=== PATIENT | female | born 1970 | race Caucasian/White ===

== ENCOUNTER 2021-09-16 21:19 | Emergency (ER) | payer OTHER ==
[2021-09-16 21:38] VITALS: BP 136/80; PULSE 82; TEMP 98.5; BMI 25.2
[2021-09-16] MEDS ORDERED: ACETAMINOPHEN 500 MG TABLET (FP) PO ONE (22:50)
[2021-09-16] MEDS ORDERED: METOCLOPRAMIDE HCL 10 MG TABLET (FP) PO ONE ×2 (22:50→23:06)
[2021-09-16] MEDS ORDERED: METHOCARBAMOL 500 MG TABLET PO ONE (22:55)
[2021-09-16] MEDS ORDERED: ACETAMINOPHEN 325 MG TABLET (FP) ONE (23:06)
[2021-09-16] MEDS ORDERED: METHOCARBAMOL 500 MG TABLET ONE (23:06)
== END 2021-09-16 23:14 | disposition home or self-care (01) ==
LOC: JER 21:19
DX: R51.9 Headache, unspecified (principal); R11.2 Nausea with vomiting, unspecified
CPT/HCPCS: 70450-TC; 99283-25